=== PATIENT | male | born 1955 | race Two or more races ===

== ENCOUNTER → 2024-05-17 | Outpatient (CLI) | payer OTHER, SELFPAY ==
[2024-05-17 11:57] LABS: CA 15-3 10.5 U/mL (<32.4); Carcinoembryonic Antigen 5.8 ng/mL (0.0-5.0)
[2024-05-21 06:44] LABS: CA 19-9 Antigen* 22 U/mL (<34)
== END | disposition home or self-care (01) ==
PROVIDERS: PCP Family Medicine; Referring Provider Nurse Practitioner; Visit Provider Nurse Practitioner
DX: C78.7 Secondary malignant neoplasm of liver and intrahepatic bile duct (principal)
CPT/HCPCS: 36415; 82105; 82378; 86300; 86301

== ENCOUNTER → 2024-06-14 | Outpatient (CLI) | payer OTHER, SELFPAY ==
[2024-06-14 09:28] LABS: Basophils # (Auto) 0.1 Thou/mm3 (0.0-0.2); Basophils % (Auto) 1 % (0-2.5); Eosinophils # (Auto) 1.2 Thou/mm3 (0.0-0.5); Eosinophils % (Auto) 15 % (0-10); Hematocrit 40.8 % (41.0-53.0); Hemoglobin 13.8 g/dL (13.5-16.0); Immature Granulocytes % (Auto) 0 % (0-0); Immature Granulocytes Auto 0.03 Thou/mm3 (0.00-0.00); Lymphocytes # (Auto) 1.8 Thou/mm3 (1.0-4.8); Lymphocytes % (Auto) 23 % (10-50); Mean Corpuscular HGB Conc 33.8 g/dl (31.0-37.0); Mean Corpuscular Hemoglobin 30.4 pg (25.0-35.0); Mean Corpuscular Volume 90 fL (80-100); Monocytes # (Auto) 0.6 Thou/mm3 (0.0-0.8); Monocytes % (Auto) 8 % (0-12); Neutrophils # (Auto) 4.2 Thou/mm3 (1.8-7.7); Neutrophils % (Auto) 53 % (37-80); Nucleated Red Blood Cell % 0 /100 WBC (0); Platelet Count 203 Thou/mm3 (140-440); RDW Standard Deviation 44.3 fL (35.1-43.9); Red Blood Count 4.54 Miln/mm3 (4.50-5.90); White Blood Count 7.9 Thou/mm3 (3.8-10.6)
[2024-06-14 09:37] LABS: Collection Type, Urine Clean Catch; Squamous Epithelial Cell,Urine 0 /hpf (0-5)
[2024-06-14 09:44] LABS: Glucose Estimated Average 134 mg/dL (80-131); Hemoglobin A1C 6.3 % Hgb (4.8-6.0)
[2024-06-14 09:47] LABS: Alanine Aminotransferase 36 U/L (10-49); Albumin, Serum 4.7 gm/dL (3.4-4.8); Albumin/Globulin Ratio 1.8 (1.2-2.2); Alkaline Phosphatase 64 U/L (46-116); Anion Gap 6 (7-16); Aspartate Amino Transferase 26 U/L (0-34); BUN/Creatinine Ratio 10 Ratio (12-20); Bilirubin,Total 0.6 mg/dL (0.3-1.2); Blood Urea Nitrogen 9 mg/dL (9-23); Calcium 9.6 mg/dL (8.3-10.6); Calcium (Corrected) 9.6 mg/dL (8.5-10.1); Carbon Dioxide 28.8 mMol/L (20.0-31.0); Cardiac Risk Estimate 2.9 RATIO (4.0-6.7); Chloride 105 mMol/L (98-107); Cholesterol 126 mg/dL (132-200); Creatinine (Component) 0.9 mg/dL (0.6-1.3); Globulin 2.6 gm/dL (2.3-3.5); Glucose 107 mg/dL (74-106); HDL Cholesterol 43 mg/dL (40-60); LDL Cholesterol,Calculated 43 mg/dL (0-130); Osmolality,Calculated 278 (275-295); Potassium 3.9 mMol/L (3.4-5.1); Sodium 140 mMol/L (136-145); Thyroid Stimulating Hormone 1.44 uIU/mL (0.55-4.78); Total Protein 7.3 gm/dL (5.7-8.2); Triglycerides 201 mg/dL (30-150); eGFR > 60 See Note
[2024-06-14 10:45] LABS: Bilirubin,Urine Negative (Negative); Blood,Urine Negative (Negative); Clarity,Urine Clear (Clear/Hazy); Color,Urine Colorless (Lt Yel-Yel); Glucose, Urine Negative (Negative); Ketones,Urine Negative (Negative); Leukocyte Esterase,Urine Negative (Negative); Nitrite,Urine Negative (Negative); PH,Urine 6.5 (5.0-7.0); Protein,Urine Negative (Neg - Trace); RBC,Urine < 1 /hpf (0-3); Specific Gravity,Urine 1.009 (1.001-1.035); Urobilinogen,Urine Negative mg/dL (0.0-1.0); WBC,Urine < 1 /hpf (0-5)
[2024-06-14 11:02] LABS: Creatinine MALB Rnd Ur 32 mg/dL (30-125); Microalbumin, Random Urine < 3 mg/L (0-300)
== END | disposition home or self-care (01) ==
LOC: COPL 08:54
PROVIDERS: PCP Family Medicine; Referring Provider Family Medicine; Visit Provider Family Medicine
DX: Z00.00 Encounter for general adult medical examination without abnormal findings (principal); E11.9 Type 2 diabetes mellitus without complications; E78.2 Mixed hyperlipidemia; E79.0 Hyperuricemia without signs of inflammatory arthritis and tophaceous disease
CPT/HCPCS: 36415; 80053; 80061; 81001; 82043; 82570; 83036; 84443; 84550; 85025

== ENCOUNTER → 2024-06-14 | Outpatient (CLI) | payer OTHER, SELFPAY ==
--- NOTE | 2024-06-14 10:54 | XR_ITS ---
Examination: Knee, left , 3 views Technique: Knee AP, lateral, oblique 3 views Date and time of exam: June 14, 2024 1142 hours INDICATIONS: Patient fell February 2024 with injury to the knee, left knee pain 3 months. FINDINGS: Mild osteopenia Early osteoarthritis medial patellofemoral joints Small knee effusion No fracture IMPRESSION: Early osteoarthritis medial patellofemoral joints
== END | disposition home or self-care (01) ==
LOC: CDIM 10:45
PROVIDERS: PCP Family Medicine; Referring Provider Family Medicine; Visit Provider Family Medicine
DX: M17.12 Unilateral primary osteoarthritis, left knee (principal); S89.92XS Unspecified injury of left lower leg, sequela; W19.XXXS Unspecified fall, sequela
CPT/HCPCS: 73562

== ENCOUNTER → 2025-01-17 | Outpatient (CLI) | payer OTHER, SELFPAY ==
[2025-01-17 14:14] LABS: Prostate Specific Antigen 7.72 ng/mL (0-4.00)
[2025-01-17 14:15] LABS: Glucose Estimated Average 134 mg/dL (80-131); Hemoglobin A1C 6.3 % Hgb (4.8-6.0)
[2025-01-17 14:24] LABS: Alanine Aminotransferase 46 U/L (10-49); Albumin, Serum 5.0 gm/dL (3.4-4.8); Albumin/Globulin Ratio 2.2 (1.2-2.2); Alkaline Phosphatase 66 U/L (46-116); Anion Gap 12 (7-16); Aspartate Amino Transferase 35 U/L (0-34); BUN/Creatinine Ratio 8 Ratio (12-20); Bilirubin,Total 0.6 mg/dL (0.3-1.2); Blood Urea Nitrogen 10 mg/dL (9-23); Calcium 10.6 mg/dL (8.3-10.6); Calcium (Corrected) 10.6 mg/dL (8.5-10.1); Carbon Dioxide 27.3 mMol/L (20.0-31.0); Chloride 105 mMol/L (98-107); Creatinine (Component) 1.2 mg/dL (0.6-1.3); Globulin 2.3 gm/dL (2.3-3.5); Glucose 109 mg/dL (74-106); Osmolality,Calculated 286 (275-295); Potassium 4.1 mMol/L (3.4-5.1); Sodium 144 mMol/L (136-145); Total Protein 7.3 gm/dL (5.7-8.2); eGFR > 60 See Note
[2025-01-17 14:33] LABS: Uric Acid 5.5 mg/dL (3.7-9.2)
[2025-01-17 14:36] LABS: Creatinine MALB Rnd Ur 30 mg/dL (30-125); Microalbumin, Random Urine < 3 mg/L (0-300)
== END | disposition home or self-care (01) ==
LOC: COPL 13:22
PROVIDERS: PCP Family Medicine; Referring Provider Family Medicine; Visit Provider Family Medicine
DX: N40.1 Benign prostatic hyperplasia with lower urinary tract symptoms (principal); E11.69 Type 2 diabetes mellitus with other specified complication; E78.2 Mixed hyperlipidemia; I10 Essential (primary) hypertension; E79.0 Hyperuricemia without signs of inflammatory arthritis and tophaceous disease
CPT/HCPCS: 36415; 80053; 82043; 82570; 83036; 84153; 84550

== ENCOUNTER → 2025-03-19 | Outpatient (CLI) | payer OTHER, SELFPAY ==
--- NOTE | 2025-03-19 08:54 | XR_ITS ---
Examination: Knee, left, 3 views Technique: Knee AP, lateral, oblique 3 views Date and time of exam: 03/19/2025, 9:18 a.m. INDICATION: Left knee pain for 2 years. No trauma. COMPARISON: Left knee radiographs 06/14/2024 FINDINGS: Mildly more pronounced marginal osteophytes osteophytes identified at the medial femoral tibial compartment (predominately femoral side), and now seen at the lateral femoral tibial compartment predominantly tibial side), with mild joint space narrowing. Redemonstration of enthesophyte formation related to the extensor mechanism along the anterior surface of the patella and at the distal patellar tendon insertion upon the tibia. Increased density in the suprapatellar recess is suggestive of a joint effusion. No fracture or subluxation. 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 Enthesopathy along the extensor mechanism and small joint effusion. No acute fracture.
== END | disposition home or self-care (01) ==
PROVIDERS: PCP Family Medicine; Referring Provider Family Medicine; Visit Provider Family Medicine
DX: M17.12 Unilateral primary osteoarthritis, left knee (principal); M25.762 Osteophyte, left knee; M25.462 Effusion, left knee
CPT/HCPCS: 73562